=== PATIENT | female | born 1955 | race Caucasian/White ===

== ENCOUNTER 2018-01-21 06:05 | Emergency (ER) | END 2018-01-21 08:31 | disposition home or self-care (01) ==

== ENCOUNTER 2018-01-24 06:42 | Emergency (ER) | END 2018-01-24 07:14 | disposition home or self-care (01) ==

== ENCOUNTER 2018-01-30 17:29 | Emergency (ER) | END 2018-01-30 20:00 | disposition left against medical advice (07) ==

== ENCOUNTER 2018-01-31 12:38 | Emergency (ER) | END 2018-01-31 16:47 | disposition home or self-care (01) ==